=== PATIENT | female | born 1995 | race Caucasian/White ===

== ENCOUNTER 2020-11-27 20:10 | Emergency (ER) | payer OTHER ==
[~2020-11-27] VITALS: Ht 162.6 cm; Wt 77.3 kg
[2020-11-27 20:45] VITALS: BP 128/62
== END 2020-11-28 06:08 | disposition home or self-care (01) ==
LOC: EMS 20:10
DX: F41.0 Panic disorder [episodic paroxysmal anxiety] (principal)
CPT/HCPCS: 99283; Z7502